=== PATIENT | female | born 2005 | race Caucasian/White ===

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

== ENCOUNTER 2025-06-06 11:23 | Emergency (ER) | payer SELFPAY | END 2025-06-06 13:19 | disposition home or self-care (01) | LOC: MW.ED 11:23 | DX: J06.9 Acute upper respiratory infection, unspecified (principal); R51.9 Headache, unspecified; R09.81 Nasal congestion | CPT/HCPCS: 87428; 99283; A9270; J8540 ==